=== PATIENT | male | born 1945 | race Caucasian/White ===

== ENCOUNTER → 2016-09-19 | Outpatient (CLI) | payer OTHER, BC ==
[~2016-09-19] MED LIST: ACETAMINOPHEN325 M1 PO; ALAVERT10 MG PO; APAP650 PO; ASPIRIN EC81 M1 PO; ASPIRIN325 PO; B12INJ INJECTION; BENADRYL25 MG PO; CENTRUM SILVER1 EAC4 PO; FISH OIL 1,0001 EAC5 PO; FOLIC ACID1 MG PO; HYDROCHLOROTH12.5 MG PO; KLOR-CON 1010 MEQ PO; LIPITOR 10 MG10 M1 PO; LISINOPRIL10 MG PO; OMEGA-3 + VITA1 EAC1 PO; PREDNISONE 10 M10 M1 PO; PREDNISONE 5 MG5 M1 PO; PRILOSEC 20 MG20 MG PO; PURINETHOL50 MG PO; TRILIPIX135 MG PO; VIAGRA100 MG PO
== END ==
LOC: MRI 02:43
DX: M19.012 Primary osteoarthritis, left shoulder (principal)

== ENCOUNTER 2017-02-25 05:13 | Inpatient (IN) | payer OTHER, BC ==
[2017-02-16 14:04] LABS: HEMATOCRIT 40.1 % (42.0-52.0); HEMOGLOBIN 13.7 gm/dL (14.0-18.0); MCH 35.4 pg (26.0-34.0); MCHC 34.2 g/dL (28.0-37.0); MCV 103.6 fL (80.0-100.0); RBC 3.87 mil/uL (4.50-6.00); RDW 16.7 % (10.5-14.5); WBC 4.8 thou/uL (4.0-11.0)
[2017-02-16 14:11] LABS: CALCIUM 9.5 mg/dL (8.5-10.1); CREATININE 1.4 mg/dL (0.7-1.3); POTASSIUM 4.2 mmol/L (3.5-5.1)
[2017-02-16 14:13] LABS: URINE BILIRUBIN NEGATIVE (Negative); URINE BLOOD NEGATIVE (Negative); URINE COLOR YELLOW; URINE GLUCOSE-RANDOM* NEGATIVE (Negative); URINE KETONES NEGATIVE (Negative); URINE LEUKOCYTES-REFLEX NEGATIVE (Negative); URINE PROTEIN (DIPSTICK) NEGATIVE (Negative); URINE UROBILINOGEN 0.2 E.U./dl (0.2-1.0)
[2017-02-16 17:27] LABS: INR 2.7; PROTIME 26.8 Seconds (9.3-11.4)
[~2017-02-25] VITALS: Ht 177.8 cm; Wt 78.2 kg
[2017-02-25] VITALS (7 sets, daily range): BP systolic 99–140; BP diastolic 79–92
--- NOTE | ~2017-02-25 | EKG ---
[address] [address] ELECTROCARDIOGRAM REPORT Name: WILL FLORENTINO Room #: PRE IN [facility]#: [id number] Admission: Attend Phys: Juan J Prince Discharge: Date of : 45 Report #: [id number] THIS REPORT FOR: //name// [facility] Test Date: 2017-02-16 Test Time: 13:33:07 Pat Name: WILL FLORENTINO Department: Room: Gender: Gantry Rigger: Yu AVILES : 1945 Requested By: Juan J Yee Order Number: [id number] MD: Ga Pham Measurements Intervals [place] Rate: 71 P: 50 [place]: 154 QRS: -20 QRSD: 141 T: -3 QT: 400 QTc: 435 Interpretive Statements Sinus rhythm Right bundle branch block Compared to ECG 05/06/2012 17:50:58 Right bundle-branch block now present Sinus tachycardia no longer present Atrial abnormality no longer present Electronically Signed On 02-16-2017 15:48:15 CDT by Ga Pham [email or web address] <ELECTRONICALLY SIGNED> By: Ga Pham MD 02/16/17 1548 1333 1333 Ga Pham MD /EPI
--- NOTE | ~2017-02-25 | O ---
[facility] [place] [address] OPERATIVE REPORT Name: WILL FLORENTINO Room #: 150-5 ADM IN M.R.#: [id number] Admission: 02/25/17 Attend Phys: Juan J Prince Discharge: Date of : 45 Report #: [id number] THIS REPORT FOR: //name// CC: Juan J Riley DATE OF SERVICE: 02/25/2017 PREOPERATIVE DIAGNOSIS: Left shoulder rotator cuff tear arthropathy. POSTOPERATIVE DIAGNOSIS: Left shoulder rotator cuff tear arthropathy of long head of biceps tendon tear. PROCEDURE PERFORMED: Left reverse total shoulder arthroplasty. SURGEON: Juan J Yee M.D. ACADEMIC SERVICES PROFESSIONAL: Charis Tobin PA-C. ANESTHESIA: General with preoperative interscalene block. FLUIDS: 1000 mL crystalloid. ESTIMATED BLOOD LOSS: Approximately 50 mL. IMPLANTS UTILIZED: DePuy Delta Xtend size 12 humeral stem DOUGLAS coated, with size 1 centered DOUGLAS coated epiphysis, a 42-mm eccentric glenoid with standard Metaglene and a size 6 humeral polyethylene cup. DESCRIPTION OF PROCEDURE: After proper identification of the patient and operative site in the preoperative holding area, the operative site was signed by myself. Prophylactic antibiotics were given. The patient elected to receive an interscalene block with indwelling catheter by Dr. Castellanos from anesthesia. After satisfactory block, the patient was brought back to the operative suite after induction of satisfactory general anesthesia. He was carefully positioned in the beach chair. Please note that anesthesia mentioned he had a very anterior airway, which required utilization of the glide scale. The patient was carefully positioned in the beach chair position with head of the bed elevated approximately 40 degrees. Head and neck were carefully supported. The patient's left shoulder could be fully extended. Left shoulder was sterilely prepped and draped in the usual manner with Chlorhexidine scrub, alcohol prep and then ChloraPrep. This was draped with final skin draping with Ioban. Magicblox limb positioning system was utilized throughout the entire procedure. An anterior deltopectoral approach was planned. Skin was incised sharply. Full-thickness skin flaps were developed. Deltopectoral interval was identified. There was no cephalic vein present and the interval was found at [address] [address] OPERATIVE REPORT Name: CHADDWILL Room #: 150-5 ADM IN M.R.#: [id number] Admission: 02/25/17 Attend Phys: Juan J Prince Discharge: Date of : 45 Report #: [id number] the region of the coracoid and then bluntly exposed distally. The patient had a moderate amount of subdeltoid adhesions and thickening of these tissues and these were carefully debrided. Joint effusion was noted and evacuated. There was evidence of massive rotator cuff tear that involved the complete subscapularis, supraspinatus and infraspinatus portion of the teres minor, still appeared to be intact. There is no evidence of long head of biceps tendon. Degenerative changes were noted primarily on the humeral side and some on the side of the superior glenoid. At this point, the humeral head superiorly with an oscillating saw, a thin wafer of the cartilaginous surface was carefully removed to allow for easier insertion of the reamers. The canal was reamed by hand distally up to a size 12 stem. Humeral head osteotomy with the appropriate cutting jig was performed in approximately 15-20 degrees of retroversion. Peripheral osteophytes were removed. Again, a small portion of the rotator cuff posteriorly was still attached. Protection plate was then applied. At this point, the remaining anterior capsular structures and labrum were carefully debrided. A lamina natural resources technician had been used to distract the joint and any remaining posterior labrum and some the abandoned synovitis was removed and the raised bodies noted on the MRI. There was no actual significant cartilaginous loose bodies. There was more hypertrophic synovium noted. The capsule was carefully released inferiorly as well as a portion of the triceps head insertion on the inferior glenoid. Great care was taken to identify and protect the axillary nerve throughout the entire procedure. There was excellent glenoid exposure. At this point, the Metaglene guide was carefully placed. The guide pin was inserted. This was placed along the more inferior aspect of the glenoid with the appropriate tilt. Guide pin was inserted. Glenoid face was then reamed, followed up by the Avery reamer to remove any prominence superiorly. Any remaining soft tissue attachments were then carefully debrided. After this was reamed just to the subchondral bone, step drill was utilized and the guide pin was removed and this area was thoroughly irrigated with normal saline. Standard Metaglene was used and carefully impacted into position, it was secured with 4 screws. Two locking with a 42 and a 36 mm screw superiorly and two 18-mm screws in the anterior and posterior direction. All screws had excellent purchase. They were sequentially tightened. Locking screws were then tightened. This was secured with seated 42 eccentric glenosphere was chosen. Cut was then reamed with an acetabular reamer for a size 1 epiphysis. The glenosphere was placed on this, reduced over the Metaglene and a guidewire was then placed. was placed inferiorly. The locking screw was kind of rotated until a click was noted with the Metaglene seated. This was carefully advanced and tightened in a minimal manner. It was then impacted, tightened, impacted, tightened and impacted and tightened again until it was fully seated. Next, a size 12 stem with a size 1 epiphysis was placed and trial reduction and implants revealed a +6 polyethylene provided the best fit. The humerus and wound were then thoroughly irrigated with antibiotic irrigant. The stem was [facility] [address] [place] [address] OPERATIVE REPORT Name: WILL FLORENTINO Room #: 150-5 ADM IN M.R.#: [id number] Admission: 02/25/17 Attend Phys: Juan J Prince Discharge: Date of : 45 Report #: [id number] prepared. It was impacted into position. It had excellent rotational stability. Trial implants were again utilized and the +6 polyethylene provided the best overall fit and stability, did not appear to over tension the soft tissues and this was what we inserted for final implantation. The wound was again thoroughly irrigated with normal saline. The implant was stable throughout full arc of motion. One gram of vancomycin powder was used during the closure; half of it deep and half of it more superficial. The deltopectoral interval was closed with 0 Vicryl and 2-0 Vicryl for the subcutaneous tissues and final skin closure with running 3-0 Monocryl in a subcuticular manner. Dermabond was applied. The patient was placed in a sling and abduction pillow, awakened and transferred to the recovery room in stable condition. Qualified head start assistant teacher was utilized throughout the entire procedure to aid in patient limb positioning, visualization and retraction of the soft tissues, instrument passage closure, dressing and sling application. The patient immobilized in a sling for 4 weeks postoperatively. By: [id number] Juan J Yee MD /nt
[~2017-02-25 05:13] MED LIST changes: +ALCORTIN A TOP; +ALDARA1 EACH TOP; +COUMADIN7.5 MG PO; +DESOXIMETASONE15 G1 TOP; +FLOMAX0.4 MG PO; +FLUOROURACIL30 GM TOP; +MAG-OXIDE400 MG PO; +MERCAPTOPURINE50 MG PO; +NIACIN500 M2 PO; +OMEGA 3-6-9 CO400 MG PO; +POTASSIUM20 PO; +PREDNISONE 5 MG5 MG PO; +PROZAC10 MG PO; -PURINETHOL50 MG PO; +VITAMIN D35000 UNIT PO
[2017-02-25 08:49] LABS: INR 1.1
[2017-02-26 04:14] VITALS: BP 136/76
[2017-02-26 05:28] LABS: HEMATOCRIT 33.4 % (42.0-52.0); HEMOGLOBIN 11.6 gm/dL (14.0-18.0)
[2017-02-26 14:42] VITALS: BP 136/76
== END 2017-02-26 15:45 | disposition home or self-care (01) | DRG 483 ==
LOC: 4N 05:13 → TBA 05:13 → PRE 09:23 → 4N 14:28 → ENTRNSPT 02-26 15:39 → EDTRNSPTSTS 02-26 15:42 → 4N 02-26 15:45
PROVIDERS: Orthopaedic Surgery Sports Medicine; Physician Assistant Surgical
PROC: 0RRK00Z Replacement of Left Shoulder Joint with Reverse Ball and Socket Synthetic Substitute, Open Approach (ICD-10-PCS; principal; 2017-02-25)
DX: M19.112 Post-traumatic osteoarthritis, left shoulder (principal); M75.102 Unspecified rotator cuff tear or rupture of left shoulder, not specified as traumatic; I10 Essential (primary) hypertension; N40.0 Benign prostatic hyperplasia without lower urinary tract symptoms; E78.00 Pure hypercholesterolemia, unspecified; F17.210 Nicotine dependence, cigarettes, uncomplicated; Z79.899 Other long term (current) drug therapy
CPT/HCPCS: 10790; 50010; 50101; 50172; 50386; 50417; 50697; 50935; 51771; 52138; 53000; 53078; 53371; 54118; 56521; 56530; 57095; 62110; 62900; 64031; 65060; 70005